=== PATIENT | male | born 1995 | race Caucasian/White ===

== ENCOUNTER → 2018-04-17 10:26 | Outpatient (POV) | payer OTHER, SELFPAY | PROVIDERS: Family Provider Internal Medicine Adolescent Medicine; Visit Provider Dermatology | DX: Z00.00 Encounter for general adult medical examination without abnormal findings (principal) ==

== ENCOUNTER → 2018-05-30 12:51 | Outpatient (CLI) | payer OTHER, SELFPAY ==
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
== END ==
PROVIDERS: PCP Internal Medicine Adolescent Medicine; Visit Provider Nurse Practitioner Family
DX: M54.6 Pain in thoracic spine (principal); M54.5 Low back pain; M25.561 Pain in right knee; M25.562 Pain in left knee; V89.2XXA Person injured in unspecified motor-vehicle accident, traffic, initial encounter
CPT/HCPCS: 72072; 72110; 73562

== ENCOUNTER 2020-05-08 08:01 | Inpatient (IN) | payer BC, SELFPAY ==
[2020-05-08] VITALS (12 sets, daily range): BP systolic 111–132; BP diastolic 64–80; PULSE 94–107; RESP 16–20; TEMP 36.6–36.8; O2SAT 94–98; BMI 27.1
--- NOTE | 2020-05-08 08:06 | ECG_ITS ---
APPROVED REPORT Exam: Resting ECG HR:86 bpm ECG Measurements Heart Rate 86 AXES AR 120 P 70 QRSd 102 QRS 18 QT 324 T 35 QTc 387 Conclusion Normal sinus rhythm ST elevation, probably due to early repolarization Borderline ECG Electronically signed by : Man Jensen, 05/18/2020 16:31:42
--- NOTE | 2020-05-08 08:10 | XR_ITS ---
PROCEDURE: XR CHEST PORTABLE CLINICAL HISTORY: cough COMPARISON: No exams were available for comparison FINDINGS: The cardiomediastinal silhouette and pulmonary vascularity are within normal limits. The lungs are clear without infiltrates, suspicious nodules, or pleural effusions. There is nodular density in the left hilar region which may be due to summation artifact from vascular overlap. Upright PA and lateral chest may confirm. A lymph node would be an additional consideration. IMPRESSION: No acute finding. Nodular density in the left hilar region Dictated by: Carlos Alberto Anand MD 05/08/2020 08:56 Carlos Alberto Anand MD in [place] 05/08/2020 08:56
[2020-05-08 08:29] LABS: Basophils % 0.2 % (0.1-2.0); Eosinophils # 0.1 K/mm3 (0.0-0.4); Eosinophils % 1.4 % (0.1-12.0); Hematocrit 50.4 % (42.0-52.0); Hemoglobin 16.4 g/dL (14.1-18.0); Lymphocytes # 1.1 K/mm3 (0.7-4.5); Lymphocytes % 13.9 % (10-50); Mean Corpuscular HGB Conc 32.7 g/dL (31.8-35.4); Mean Corpuscular Hemoglobin 31.5 pg (27.0-31.2); Mean Corpuscular Volume 96.5 fl (80-94); Mean Platelet Volume 8.2 fl (7.4-10.4); Monocytes # 0.8 K/mm3 (0.1-1.0); Monocytes % 9.8 % (1.7-9.3); Neutrophils % 74.8 % (37.0-80.0); Platelet Count 132 K/mm3 (142-424); Red Blood Count 5.22 M/mm3 (4.60-6.20); Red Cell Distribution Width 14.3 % (11.5-17.5)
[2020-05-08 08:31] LABS: Potassium 3.9 mmoL/L (3.5-5.1); Sodium 135 mmol/L (136-145)
[2020-05-08 08:33] LABS: Alanine Aminotransferase 44 U/L (12-78); Aspartate Amino Transferase 61 U/L (17-59); Blood Urea Nitrogen 14 mg/dl (9-20); Creatinine Clearance Estimated 184 mL/min (50-200); Estimated Glomerular Filt Rate 120 ml/min (>60); GFR (African American) 145 ML/MIN (>60)
[2020-05-08 08:34] LABS: Albumin Level 4.5 g/dl (3.5-5.0); Albumin/Globulin Ratio 1.6 (1.1-1.8); Alkaline Phosphatase 126 U/L (38-126); Bilirubin,Total 0.8 mg/dl (0.2-1.3); Calcium 9.2 mg/dl (8.4-10.2); Carbon Dioxide 27 mmol/L (22.0-30.0); Globulin 2.9 g/dL (1.3-3.2); Glucose 186 mg/dl (74-100); Lipase 75 U/L (23-300); Total Protein,Serum 7.4 g/dl (6.3-8.2)
[2020-05-08 08:43] LABS: NT Pro Brain Natriuretic Pep. 318 pg/mL (0-125)
[2020-05-08 08:48] LABS: Troponin I 5.96 ng/ml (0.00-0.034)
--- NOTE | 2020-05-08 08:51 | PC.NURSE ---
Joey called advised of troponin and abnormal ekg
[2020-05-08 08:54] LABS: Anion Gap 13.9 mEq/L (5-15); Chloride 98 mmol/L (98-107)
--- NOTE | 2020-05-08 08:55 | CA_ITS ---
APPROVED REPORT EXAM: Comprehensive 2D, Doppler, and color-flow Echocardiogram Hog Driver: Saray Crespo CRT Ht: 6 ft 0 in Wt: 200lbs BSA: 2.13 BP: 111/72 mmHg Indications: Chest Pain, Increased trop, ? pericarditis 2D Dimensions LVOT 1.90 cm (M/F) 1.5-2.5 M-Mode Dimensions RVDd 2.59 cm (0.9-2.6) LA Diam 2.91 cm (1.9-4.0) LVDd 6.06 cm (3.5-5.7) Ao Diam 3.30 cm (2.0-3.7) LVDs 5.00 cm (3.5-5.7) IVSd 0.88 cm (0.6-1.1) PWd 0.56 cm (0.6-1.1) EF (Teich) 35.80% FS 17.50% EDV (Teich) 184.10 mL ESV (Teich) 118.20 mL LV Diastology E Decel Time 150.00 (160-240 msec) E/A Ratio 1.14 MED E' 6.60 (< 7 cm/sec) E'/MED E' Ratio 11.29 (>14) LAT E' 9.70 (<10 cm/sec) E/LAT E' Ratio 7.68 (>14) Aortic Valve AO Peak GR. 3.80 mmHg Mitral Valve MV E Max Stas. 74.00 (40-130 cm/s) MV A Velocity 65.00 (40-130 cm/s) E/A Ratio 1.14 MV Decel. Time 150.00 (160-240 ms) MV PHT 44.00 ms Tricuspid Valve TR P. Velocity 62.00 cm/s Left Ventricle Left atrium is normal size, left ventricle is mildly enlarged, mildly reduced left ventricular systolic function, visually estimated ejection fraction approximately 45% with mild left ventricular global hypokinesis. Diastolic parameters are within normal range. Right Ventricle Right atrium and right ventricular normal size and contractility. Aortic Valve Aortic valve is grossly normal, there is no aortic stenosis or aortic insufficiency. Mitral Valve Mitral valve is grossly normal, there is mild mitral regurgitation Tricuspid Valve Tricuspid valve is grossly normal, there is mild tricuspid regurgitation, tricuspid regurgitation jet velocity is inadequate for calculation of the right ventricular systolic pressure. Pulmonic Valve Pulmonic valve is poorly visualized. Great Vessels Aortic root is normal size. Pericardium No significant pericardial effusion noted. Conclusion 1. Mildly dilated left ventricle, visually estimated ejection fraction 45% left ventricle is mildly globally hypokinetic. There is no regional wall motion abnormality. Diastolic parameters are normal. 2. Mild mitral and tricuspid regurgitation. 3. No significant pericardial effusion noted. Electronically signed by : Matheus Jaimes, 05/08/2020 10:10:05
--- NOTE | 2020-05-08 09:01 | PC.NURSE ---
[facility] at bedside
[2020-05-08 09:03] LABS: Activated Partial Thrombo Time 27.9 seconds (23.6-34.0); INR 1.01 (0.9-1.1); Prothrombin Time 11.2 seconds (9.4-11.8)
[2020-05-08 09:10] LABS: D-Dimer 0.61 ug/mL (0.15-8.0)
--- NOTE | 2020-05-08 09:14 | PC.NURSE ---
echo at bedside
--- NOTE | 2020-05-08 09:15 | [facility]H.EDCP ---
ED Disposition Clinical Impression: Chest pain Qualifiers: Chest pain type: unspecified Qualified Code(s): R07.9 - Chest pain, unspecified Acute pericarditis Qualifiers: Pericarditis type: infectious Infectious pericarditis etiology: viral Qualified Code(s): I30.1 - Infective pericarditis Disposition: Admitted As Inpatient Condition on Discharge: Serious Referrals: Nick Purcell MD [Primary Care Provider] - - Critical Care Critical Care Time: No Attestation: On 05/08/20, the high probability of a clinically significant, sudden or life threatening deterioration of the following system(s) required my full and direct attention, intervention and personal management. The time I documented below is in addition to time spent performing reported procedures but includes the following listed in this critical care notation. Medical Decision Making - Medical Records Medical records reviewed: Yes: I reviewed the patient's medical records. - Shay Inquiry Pt receiving controlled substance: No Vital Signs: 05/08/20 08:02 05/08/20 08:32 05/08/20 09:00 Temperature 98 F Temperature Source Oral Pulse Rate [Radial] 104 H 107 H 102 H Respiratory Rate 20 Blood Pressure [Right Arm] 130/70 127/78 111/64 Blood Pressure Mean [Right Arm] 90 94 79 Blood Pressure Position [Right Arm] Sitting Sitting Sitting 02 Sat by Pulse Oximetry 96 Oxygen Delivery Method Room Air - Lab Data Lab Results 05/08/20 08:15: WBC 8.0, RBC 5.22, Hgb 16.4, Hct 50.4, MCV 96.5 H, MCH 31.5 H, MCHC 32.7, RDW 14.3, Plt Count 132 L, MPV 8.2, Neut % (Auto) 74.8, Lymph % (Auto) 13.9, [place] % (Auto) 9.8 H, Eos % (Auto) 1.4, Baso % (Auto) 0.2, Neut # (Auto) 6.0, Lymph # (Auto) 1.1, [place] # (Auto) 0.8, Eos # (Auto) 0.1, Baso # (Auto) 0.0 05/08/20 08:15: Sodium 135 L, Potassium 3.9, Chloride 98, Carbon Dioxide 27, Anion Gap 13.9, BUN 14, Creatinine 0.80, Estimated Creat Clear 184, Estimated GFR 120, Est GFR ( Amer) 145, Glucose 186 H, Calcium 9.2, Total Bilirubin 0.8, AST 61 H, ALT 44, Alkaline Phosphatase 126, Troponin I 5.96 H, NT-Pro-B Natriuret Pep 318 H, Total Protein 7.4, Albumin 4.5, Globulin 2.9, Albumin/Globulin Ratio 1.6, Lipase 75 05/08/20 08:39: PT 11.2, INR 1.01, APTT 27.9 05/08/20 08:39: D-Dimer 0.61 Result diagrams: 05/08/20 08:15 05/08/20 08:15 Orders (Tests/Meds): ED MEDICATIONS Generic Name Dose Route Start Last Admin Trade Name Freq PRN Reason Stop Dose Admin Sodium Chloride 8 ml 05/08/20 08:14 05/08/20 08:20 Sodium Chloride 0.9% 10ml Vial IV 06/07/20 08:13 8 ml NEEDED PRN Administration dilute pepcid Discontinued Medications Generic Name Dose Route Start Last Admin Trade Name Freq PRN Reason Stop Dose Admin Aspirin 325 mg 05/08/20 08:10 05/08/20 08:21 Aspirin 325mg Tablet PO 05/08/20 08:11 Not Given ONCE ONE Aspirin 324 mg 05/08/20 08:21 05/08/20 08:21 Aspirin 81mg Chewable Tablet PO 05/08/20 08:22 324 mg ONCE ONE Administration Famotidine 20 mg 05/08/20 08:14 05/08/20 08:19 Famotidine 20mg/2ml Vial IV 05/08/20 08:15 20 mg ONCE ONE Administration ORDERS Category Date Time Status Covid-19 IgG/IgM ([facility]) Stat Lab 05/08/20 08:15 Received Troponin I Q3H Lab 05/08/20 11:15 Ordered Troponin I Q3H Lab 05/08/20 14:15 Ordered EKG Request [ECG Request by /Syeda] Stat Y 05/08/20 08:10 Ordered - Radiology Data #1 Image(s): Chest Image Reviewed: Yes I reviewed the patient's radiology results, Yes I reviewed the patient's radiology image Preliminary Findings: Normal/NAD - ECG Data Tracing #1 Normal ventricular rate 86 bpm. OH interval of 120 ms. Normal QTC. Normal sinus rhythm with diffuse ST elevation ECG initial impression date: 05/08/20 ECG initial impression time: 08:08 - Physician Consults Physician Consulted: Alvin Zavala Time: 09:19 Reason -: Cardiology Eval/Care - Reevaluation(s) Time: 09:18 Reevaluation
--- NOTE | 2020-05-08 09:20 | PC.NURSE ---
vascular here to do an echo
[2020-05-08 09:26] LABS: Coronavirus 19 IgG Antibody Positive (Negative); Coronavirus 19 IgM Antibody Negative (Negative)
--- NOTE | 2020-05-08 09:26 | HMH.CNCARD ---
History of Present Illness Consult date: 05/08/20 Requesting physician: Bruno Pratt Consult reason: chest pain Chief complaint: chest pain Additional Medical History:: 1. Tobacco use, 1.5 packs/day, off and on for many years 2. URI with myocarditis, 05/08/2020 History of present illness: 24-year-old male presents to the emergency department with a 2-day history of chest discomfort. Patient states that he woke yesterday and started having some substernal chest discomfort. It is dull in nature. Anthony like it was radiating to his back. He did take some ibuprofen yesterday which seemed to help with the symptoms. However he awoke again this morning's he was still having consistent pain. Patient states that he has never had this before. Denies any past medical history. Does not take any medications. He does endorse some URI type symptoms over the last few days. He has had some runny nose, sore throat as well as nonproductive cough. Denies any fevers or chills. No sick contacts. No recent travel. No palpitations. No hemoptysis. Denies any abdominal pain or vomiting. No headache, no change in vision, no focal weakness. The above per NARCISA Garcia MD Patient does smoke about a pack and half per day for the last 6 months. He is on no medications. He denies any contact with anyone known to have COVID-19. He relates chills this a.m. when he awoke. Cardiology consulted for abnormal EKG and elevated troponin of 5.9. EKG shows sinus rhythm with ST elevation diffusely. [facility] History *Have you ever received a pneumonia vaccine?: No *Have you received a flu vaccine this season?: No - *Social History Alcohol Intake: never *Occupational Status:: employed *Travel in the last 8 weeks: Inside the [place] Family Hx:: No significant family history Meds Home Medications Medication Instructions Recorded Confirmed Type No Known Home Medications 05/24/18 05/08/20 History Allergies Allergy/AdvReac Type Severity Reaction Status Date / Time No Known Allergies Allergy Verified 05/24/18 08:57 Exam Vital signs and Labs for Last 24 Hours: Temp Pulse Resp BP Pulse Ox 98 F 102 H 20 111/64 96 05/08/20 08:02 05/08/20 09:00 05/08/20 08:02 05/08/20 09:00 05/08/20 08:02 Laboratory Results - last 24 hr 05/08/20 08:15: WBC 8.0, RBC 5.22, Hgb 16.4, Hct 50.4, MCV 96.5 H, MCH 31.5 H, MCHC 32.7, RDW 14.3, Plt Count 132 L, MPV 8.2, Neut % (Auto) 74.8, Lymph % (Auto) 13.9, [place] % (Auto) 9.8 H, Eos % (Auto) 1.4, Baso % (Auto) 0.2, Neut # (Auto) 6.0, Lymph # (Auto) 1.1, [place] # (Auto) 0.8, Eos # (Auto) 0.1, Baso # (Auto) 0.0 05/08/20 08:15: Sodium 135 L, Potassium 3.9, Chloride 98, Carbon Dioxide 27, Anion Gap 13.9, BUN 14, Creatinine 0.80, Estimated Creat Clear 184, Estimated GFR 120, Est GFR ( Amer) 145, Glucose 186 H, Calcium 9.2, Total Bilirubin 0.8, AST 61 H, ALT 44, Alkaline Phosphatase 126, Troponin I 5.96 H, NT-Pro-B Natriuret Pep 318 H, Total Protein 7.4, Albumin 4.5, Globulin 2.9, Albumin/Globulin Ratio 1.6, Lipase 75 05/08/20 08:39: PT 11.2, INR 1.01, APTT 27.9 05/08/20 08:39: D-Dimer 0.61 I & O for Last 24 hours: Intake & Output 05/05/20 05/06/20 05/07/20 05/08/20 11:59 11:59 11:59 11:59 Weight 200 lb - Constitutional no acute distress - *Routine Neck Exam Present: supple. Absent: lymphadenopathy - *Routine Respiratory Exam Present: CTA bilaterally - *Routine Cardiovascular Exam Present: RRR - *Routine Abdominal Exam Present: soft, normoactive bowel sounds. Absent: tenderness - *Routine Extremities Exam Absent: cyanosis, clubbing, edema - *Routine Neurological Exam Present: alert, oriented X3 Review of Systems - Review of Systems Review of systems:: pertinent systems reviewed and negative unless documented below - *Cardiovascular Reports chest pain - *Neurologic Denies headache(s) Assessment and Plan (1) Myocarditis Status: Acute Category: Medical Co
--- NOTE | 2020-05-08 10:20 | P.CONPHA_ITS ---
[facility] Pharmacy VTE Monitoring - Patient Demographics Admission date: 05/08/20 Report Date: 05/08/20 Time: 10:21 Allergies/Adverse Reactions: Patient Allergies No Known Allergies Allergy (Verified 05/24/18 08:57) Height: 1.83 m Weight: 90.718 kg Patient Problems: Current Active Problems Chest pain (Acute) Acute pericarditis (Acute) Myocarditis (Acute) Tobacco use (Acute) URI (upper respiratory infection) (Acute) - VTE Risk Labs: VTE Related Lab Results Hgb 16.4 g/dL (14.1-18.0) 05/08/20 08:15 Hct 50.4 % (42.0-52.0) 05/08/20 08:15 Plt Count 132 K/mm3 (142-424) L 05/08/20 08:15 PT 11.2 seconds (9.4-11.8) 05/08/20 08:39 INR 1.01 (0.9-1.1) 05/08/20 08:39 APTT 27.9 seconds (23.6-34.0) 05/08/20 08:39 BUN 14 mg/dl (9-20) 05/08/20 08:15 Creatinine 0.80 mg/dl (0.66-1.25) 05/08/20 08:15 Estimated Creat Clear 184 mL/min (50-200) 05/08/20 08:15 Clinical Trial Participant: No - Prophylaxis VTE Prophylaxis Ordered?: Yes Types of VTE Prophylaxis: TEDS Knee High
--- NOTE | 2020-05-08 10:23 | PC.NURSE ---
report given to yoana avila
[2020-05-08 12:20] LABS: Adenovirus,PCR Not Detected (NotDetected); Bordetella Pertussis Not Detected (NotDetected); Chlamydophila Pneumoniae, PCR Not Detected (NotDetected); Coronavirus 19, PCR Not Detected (NotDetected); Coronavirus 229E Not Detected (NotDetected); Coronavirus NL63 Not Detected (NotDetected); Coronavirus OC43 Not Detected (NotDetected); Coronovirus HKU1,PCR Not Detected (NotDetected); Human Metapneumovirus Not Detected (NotDetected); Influenza A, PCR Not Detected (NotDetected); Influenza AH1, 2009 Not Detected (NotDetected); Influenza AH1, PCR Not Detected (NotDetected); Influenza AH3,PCR Not Detected (NotDetected); Influenza B, PCR Not Detected (NotDetected); Mycoplasma Pneumoniae, PCR Not Detected (NotDetected); Parainfluenza 1, PCR Not Detected (NotDetected); Parainfluenza 2, PCR Not Detected (NotDetected); Parainfluenza 3, PCR Not Detected (NotDetected); Parainfluenza 4, PCR Not Detected (NotDetected); Respiratory Syncytial Virus Not Detected (NotDetected); Rhinovirus/Enterovirus Not Detected (NotDetected)
--- NOTE | 2020-05-08 13:21 | HMH.HP ---
*Admission Date: 05/08/20 *Chief complaint: chest pain *History of present illness: 24-year-old male presents to the emergency department with worsening chest pressure/discomfort/referred pain to his arms over the past 2 to 3 days. He states he woke up this morning feeling like he had a balloon in his chest . Given concern so he called his mom who brought him to the ER. States the pain has been worsening over the past week with predominantly fatigue until onset of pain in his back arms neck and chest that is waxed and waned over the past 2 to 3 days. Yesterday took ibuprofen with some benefit. Was able to do his work. This morning scared him however. On assessment in the ER, he was noted to have significant elevation in troponin, diffuse ST elevation on EKG, and positive COVID-19 IgG antibody. Patient states that he has never had this before. Denies any past medical history. Does not take any medications. He does endorse cough, runny nose, and URI symptoms (mild in nature) that began 4 weeks ago and lasted about 2 weeks. Did not think much of it and has had no prior testing for COVID-19. Cough was minimally productive for white sputum. Over the past week however he denies any fevers or chills. No known sick contacts, no recent travel, no palpitations. Patient does smoke about a pack and half per day for the last 6 months. Cardiology consulted for abnormal EKG and elevated troponin of 5.9. EKG shows sinus rhythm with ST elevation diffusely. Admitted to medicine for further management of suspected pericarditis/myocarditis [facility] History I have reviewed the patient's past medical history: Yes Medical History: Denies:: Cancer, Diabetes Mellitus Type 1, Diabetes Mellitus Type 2, MRSA *Have you ever received a pneumonia vaccine?: No *Have you received a flu vaccine this season?: No Other Surgeries: Yes: No Previous Surgery Amputation: No Fractures: No - *Social History Last grade of school completed: High school graduate Smoking Status: Current every day smoker Tobacco Type: cigarettes, smokeless tobacco # Packs/Day (cigarettes): 1 Alcohol Intake: current Alcohol Intake Frequency:: holidays/special occasions only *Occupational Status:: employed Housing: house Household Members: none *Travel in the last 8 weeks: Inside the [facility] Family Hx:: No significant family history Review of Systems - Review of Systems Review of systems:: pertinent systems reviewed and negative unless documented below (14 point review of systems performed, pertinent positives and negatives as per HPI) - *Neurologic Denies headache(s) Meds Home Medications Medication Instructions Recorded Confirmed Type No Known Home Medications 05/24/18 05/08/20 History Allergies Allergy/AdvReac Type Severity Reaction Status Date / Time No Known Allergies Allergy Verified 05/24/18 08:57 Exam Vital signs and Labs for Last 24 Hours: Temp Pulse Resp BP Pulse Ox 98.2 F 98 H 20 115/80 98 05/08/20 11:27 05/08/20 11:27 05/08/20 11:27 05/08/20 11:27 05/08/20 11:27 Laboratory Results - last 24 hr 05/08/20 08:15: WBC 8.0, RBC 5.22, Hgb 16.4, Hct 50.4, MCV 96.5 H, MCH 31.5 H, MCHC 32.7, RDW 14.3, Plt Count 132 L, MPV 8.2, Neut % (Auto) 74.8, Lymph % (Auto) 13.9, [place] % (Auto) 9.8 H, Eos % (Auto) 1.4, Baso % (Auto) 0.2, Neut # (Auto) 6.0, Lymph # (Auto) 1.1, [place] # (Auto) 0.8, Eos # (Auto) 0.1, Baso # (Auto) 0.0 05/08/20 08:15: Sodium 135 L, Potassium 3.9, Chloride 98, Carbon Dioxide 27, Anion Gap 13.9, BUN 14, Creatinine 0.80, Estimated Creat Clear 184, Estimated GFR 120, Est GFR ( Amer) 145, Glucose 186 H, Calcium 9.2, Total Bilirubin 0.8, AST 61 H, ALT 44, Alkaline Phosphatase 126, Troponin I 5.96 H, NT-Pro-B Natriuret Pep 318 H, Total Protein 7.4, Albumin 4.5, Globulin 2.9, Albumin/Globulin Ratio 1.6, Lipase 75 05/08/20 08:15: SARS-CoV-2 IgG Ab (Rapid) Positive A, SARS-CoV-2 IgM Ab (Rapid) Negative 05/08/20 08:39: PT 11.2, INR 1
--- NOTE | 2020-05-08 18:15 | PC.NURSE ---
Pt was a new admit this shift from the ER with pericarditis. Pt has been pleasant and cooperative. A&O X4. No complaints of pain or SOA. Lungs CTA. No edema noted. Skin is C/D/I. Pt is on room air with sats. >93%. Telemetry reveals NSR. Pt ambulates independently throughout the room and to/from the bathroom. Pt voids clear, yellow urine without issue. No BM this shift. 20 G peripheral IV in the LT forearm is patent and infusing NS @ 50 ML/HR. VSS. Call light within reach. Will continue to monitor.
--- NOTE | 2020-05-08 23:52 | PC.NURSE ---
He is A&Ox3. He denies any pain including chest pain. He is sitting up in bed watching television. He reports is IV fluids. Reports he is drinking plenty of fluids. Continues on RA. He reports his last BM was on 05/07/20.
[2020-05-09] VITALS: BP 130/71; PULSE 89; PULSE 90; RESP 18; TEMP 36.6; O2SAT 96
[2020-05-09 04:00] VITALS: BP 126/70; PULSE 80; PULSE 92; RESP 16; TEMP 36.4; O2SAT 96
[2020-05-09 05:26] VITALS: BMI 27.1
--- NOTE | 2020-05-09 06:33 | PC.NURSE ---
12-Lead EKG completed without complication. Pt tolerated well
--- NOTE | 2020-05-09 06:34 | PC.NURSE ---
No acute changes since previous assessment.
--- NOTE | 2020-05-09 07:00 | ECG_ITS ---
APPROVED REPORT Exam: Resting ECG HR:73 bpm ECG Measurements Heart Rate 73 AXES OK 120 P 61 QRSd 98 QRS -6 QT 372 T -2 QTc 409 Conclusion Normal sinus rhythm ST elevation, consider lateral injury or acute infarct ACUTE SD Abnormal ECG Electronically signed by : Man Jensen, 05/15/2020 11:40:01
[2020-05-09 07:06] LABS: Basophils % 0.1 % (0.1-2.0); Eosinophils % 0.2 % (0.1-12.0); Hematocrit 49.9 % (42.0-52.0); Hemoglobin 16.9 g/dL (14.1-18.0); Lymphocytes # 0.9 K/mm3 (0.7-4.5); Mean Corpuscular HGB Conc 33.9 g/dL (31.8-35.4); Mean Corpuscular Hemoglobin 32.1 pg (27.0-31.2); Mean Corpuscular Volume 94.7 fl (80-94); Mean Platelet Volume 8.2 fl (7.4-10.4); Monocytes # 0.2 K/mm3 (0.1-1.0); Neutrophils # 6.7 K/mm3 (1.8-7.8); Neutrophils % 84.7 % (37.0-80.0); Platelet Count 165 K/mm3 (142-424); Red Blood Count 5.26 M/mm3 (4.60-6.20); Red Cell Distribution Width 13.9 % (11.5-17.5); White Blood Count 7.9 K/mm3 (4.8-10.8)
[2020-05-09 07:13] LABS: Chloride 99 mmol/L (98-107); Sodium 137 mmol/L (136-145)
[2020-05-09 07:14] LABS: Potassium 4.6 mmoL/L (3.5-5.1)
[2020-05-09 07:16] LABS: Blood Urea Nitrogen 14 mg/dl (9-20); Creatinine Clearance Estimated 184 mL/min (50-200); Estimated Glomerular Filt Rate 120 ml/min (>60); GFR (African American) 145 ML/MIN (>60)
[2020-05-09 07:17] LABS: Anion Gap 14.6 mEq/L (5-15); Calcium 9.5 mg/dl (8.4-10.2); Carbon Dioxide 28 mmol/L (22.0-30.0); Glucose 158 mg/dl (74-100)
[2020-05-09 07:32] LABS: Troponin I 4.29 ng/ml (0.00-0.034)
[2020-05-09 08:00] VITALS: BP 143/85; PULSE 87; PULSE 90; RESP 20; TEMP 36.4; O2SAT 96
--- NOTE | 2020-05-09 08:14 | HMH.DCSUM ---
General - General Admission date:: 05/08/20 Discharge date: 05/09/20 HPI HPI: 24-year-old male presents to the emergency department with worsening chest pressure/discomfort/referred pain to his arms over the past 2 to 3 days. He states he woke up this morning feeling like he had a balloon in his chest . Given concern so he called his mom who brought him to the ER. States the pain has been worsening over the past week with predominantly fatigue until onset of pain in his back arms neck and chest that is waxed and waned over the past 2 to 3 days. Yesterday took ibuprofen with some benefit. Was able to do his work. This morning scared him however. On assessment in the ER, he was noted to have significant elevation in troponin, diffuse ST elevation on EKG, and positive COVID-19 IgG antibody. Patient states that he has never had this before. Denies any past medical history. Does not take any medications. He does endorse cough, runny nose, and URI symptoms (mild in nature) that began 4 weeks ago and lasted about 2 weeks. Did not think much of it and has had no prior testing for COVID-19. Cough was minimally productive for white sputum. Over the past week however he denies any fevers or chills. No known sick contacts, no recent travel, no palpitations. Patient does smoke about a pack and half per day for the last 6 months. Cardiology consulted for abnormal EKG and elevated troponin of 5.9. EKG shows sinus rhythm with ST elevation diffusely. Admitted to medicine for further management of suspected pericarditis/myocarditis Hospital Course Hospital Course: Patient was admitted, started on anticoagulation, IV Solu-Medrol, ibuprofen and colchicine. Echocardiogram showed diminished EF at 45%, global hypokinesis consistent with the diagnosis of viral myocarditis given clinical presentation and EKG changes. Patient improved over the next 24 hours and troponins are trending down nicely. This morning patient's exam is normalized. He will be discharged home with p.o. medications as noted in the reconciliation form. Instructed on low-salt diet, he will follow-up with us in 2 days. No lifting greater than 10 pounds or strenuous aerobic activities. Objective Vital signs: Temp Pulse Resp BP Pulse Ox 97.6 F 87 20 143/85 H 96 05/09/20 08:00 05/09/20 08:00 05/09/20 08:00 05/09/20 08:00 05/09/20 08:00 no acute distress - *Routine HEENT Exam Head: Present: normocephalic Eye: Present: EOMI, PERRL ENT: Present: mucous membranes moist - *Routine Neck Exam Present: supple - *Routine Respiratory Exam Present: CTA bilaterally - *Routine Cardiovascular Exam Present: RRR - *Routine Abdominal Exam Present: soft, normoactive bowel sounds. Absent: tenderness - *Routine Extremities Exam Absent: cyanosis, clubbing, edema - *Routine Skin Exam Present: warm. Absent: rash - Detailed Eye Exam Eyelids: Bilateral normal inspection Results Labs on day of discharge: Labs from last 24 hours 05/09/20 05/09/20 05/08/20 06:57 06:57 15:55 WBC 7.9 RBC 5.26 Hgb 16.9 Hct 49.9 MCV 94.7 H MCH 32.1 H MCHC 33.9 RDW 13.9 Plt Count 165 MPV 8.2 Neut % (Auto) 84.7 H Lymph % (Auto) 12.0 [place] % (Auto) 3.0 Eos % (Auto) 0.2 Baso % (Auto) 0.1 Neut # (Auto) 6.7 Lymph # (Auto) 0.9 [place] # (Auto) 0.2 Eos # (Auto) 0.0 Baso # (Auto) 0.0 PT INR APTT D-Dimer Sodium 137 Potassium 4.6 Chloride 99 Carbon Dioxide 28 Anion Gap 14.6 BUN 14 Creatinine 0.80 Estimated Creat Clear 184 Estimated GFR 120 Est GFR ( Amer) 145 Glucose 158 H Calcium 9.5 Total Bilirubin AST ALT Alkaline Phosphatase Troponin I 4.29 H 10.70 H NT-Pro-B Natriuret Pep Total Protein Albumin Globulin Albumin/Globulin Ratio Lipase Chlamy pneumoniae PCR Adenovirus (PCR) B. pertussis D
== END 2020-05-09 09:48 | disposition home or self-care (01) | DRG 316 ==
LOC: ER 09:20 → 2ND 09:37
PROVIDERS: Physician Assistant; Admitting Provider Internal Medicine Adolescent Medicine; Emergency Provider Emergency Medicine; PCP Internal Medicine Adolescent Medicine; Visit Provider Internal Medicine Adolescent Medicine
DX: I51.4 Myocarditis, unspecified (principal); Z86.19 Personal history of other infectious and parasitic diseases; Z72.0 Tobacco use; J06.9 Acute upper respiratory infection, unspecified
CPT/HCPCS: 36415; 71045; 80048; 80053; 83690; 83880; 84484; 85025; 85378; 85610; 85730; 86328; 87581; 87633; 87798; 93005; 93306; 96365; 99284

== ENCOUNTER → 2020-06-05 09:14 | Outpatient (CLI) | payer BC, SELFPAY | PROVIDERS: PCP Internal Medicine Adolescent Medicine; Visit Provider Urology | DX: I51.4 Myocarditis, unspecified (principal); J06.9 Acute upper respiratory infection, unspecified; Z01.84 Encounter for antibody response examination; Z72.0 Tobacco use | CPT/HCPCS: 93306 ==

== ENCOUNTER → 2021-05-18 15:28 | Outpatient (POV) | payer BC, SELFPAY | PROVIDERS: Visit Provider Dermatology | DX: Z00.00 Encounter for general adult medical examination without abnormal findings (principal) ==

== ENCOUNTER 2022-05-14 14:19 | Emergency (ER) | payer OTHER, SELFPAY ==
[2022-05-14 14:20] VITALS: BP 128/67; PULSE 97; RESP 16; TEMP 37.2; O2SAT 99; BMI 29.1
--- NOTE | 2022-05-14 14:36 | HMH.EDNVD ---
Discharge Plan Disposition Patient Disposition: Home, Self-Care Prescriptions Prescriptions: New ondansetron HCl 4 mg Tablet 4 mg PO Q8H PRN (Reason: Nausea) Qty: 14 0RF Referrals Follow up/Referrals: Nick Purcell MD [Primary Care Provider] - See instructions Clinical Impressions Clinical Impression: Abdominal pain Instructions Patient Instructions: DI for Nausea -- Adult Discharge ED Provider: Mitchell Jiménez Nausea/Vomiting/Diarrhea HPI General Chief complaint: Nausea/Vomiting/Diarrhea Stated complaint: vomiting, abdominal pain Time Seen by Provider: 05/14/22 14:36 Mode of Arrival: Ambulatory Source of Information: Patient, Spouse and Medical Record Limitations: No Limitations Description of Symptoms (Recalled from ER Triage Doc. by RN): Pt reports vomiting that began approx 10 am this morning. Pt also reports constant LUQ abd pain, pt reports pain began as a cramping right after vomiting but is now constant. Pt denies fever, states no change in BM habits (reports normally has diarrhea). History of Present Illness HPI Narrative: onset this am with lt sided abd pain with nausea - has food intol - no fever - no known chronic illness complaint: nausea, vomiting and abdominal pain Onset (ago): hour(s) Associated Abdominal Pain: Yes Location of pain: LUQ and LLQ Radiation: flank Severity: moderate Quality: aching Associated symptoms: denies other symptoms Related Data Previous Rx's Medication Instructions Recorded ondansetron HCl 4 mg tablet 4 mg PO Q8H PRN Nausea #14 tabs 05/14/22 Allergies Allergy/AdvReac Type Severity Reaction Status Date / Time No Known Allergies Allergy Verified 06/10/20 08:41 PFSH PFS Social History (Updated 05/14/22 @ 14:33 by Wendy Saba RN) Smoking Status: Never smoker second hand exposure: No alcohol intake: current substance use type: denies use current occupational status: employed Travel in the last 8 weeks: Inside the [place] household members: none housing: house current occupation: Electrical work current occupational exposures/hazards: Yes caffeine: Yes ROS Obtained: Yes All systems reviewed & no additional complaints except as documented Constitutional Constitutional: Denies fever(s) Eyes Eyes: Denies photophobia ENT Ears, Nose, Mouth, and Throat: Denies vertigo Gastrointestinal Gastrointestingal: Reports as per HPI, cramping, nausea and vomiting Neurologic Neurologic: Denies vertigo Physical Exam General General appearance: alert Head Head exam: normocephalic Eye Eye exam: Present PERRL and EOMI; Absent jaundice ENT ENT exam: Present mucous membranes moist Neck Neck exam: Present trachea midline Respiratory Respiratory exam: Present normal lung sounds bilaterally; Absent respiratory distress Cardiovascular Cardiovascular exam: Present regular rate; Absent systolic murmur Abdominal Exam Abdominal exam: Present soft and tenderness; Absent guarding, rebound or rigidity Abdominal tenderness: Present LUQ, LLQ and moderate Extremities Exam Extremities exam: Present full ROM Back Exam Back exam: Absent CVA tenderness (L) Neurological Exam Neurological exam: Present alert, oriented X3 and CN II-XII intact Psychiatric Psychiatric exam: Present normal affect Skin Skin exam: Absent rash Medical Decision Making Medical Records Medical records reviewed: Yes I reviewed the patient's medical records. Shay Inquiry Pt receiving controlled substance: No Vital Signs: 05/14/22 14:20 05/14/22 15:00 05/14/22 15:31 Temperature 98.9 F Temperature Source Oral Pulse Rate 92 H 91 H Pulse Rate [Right Radial] 97 H Respiratory Rate 16 20 22 Blood Pressure 126/70 115/68 Blood Pressure [Right Arm] 128/67 Blood Pressure Mean 81 83 Blood Pressure Mean [Right Arm] 87 Blood Pressure Source [Right Arm] Automatic Cuff Blood Pressure Position [Right Arm] Sitting 02 Sat by Pulse Oximetry 99
--- NOTE | 2022-05-14 14:41 | CT_ITS ---
PROCEDURE INFORMATION: Exam: CT Abdomen And Pelvis With Contrast Exam date and time: 05/14/2022 3:35 PM Age: 26 years old Clinical indication: Abdominal pain; Generalized; Additional info: Abd pain TECHNIQUE: Imaging protocol: Computed tomography of the abdomen and pelvis with contrast. Radiation optimization: All CT scans at this facility use at least one of these dose optimization techniques: automated exposure control; mA and/or kV adjustment per patient size (includes targeted exams where dose is matched to clinical indication); or iterative reconstruction. Contrast material: ISOVUE; Contrast volume: 75 ml; Contrast route: IV; COMPARISON: [facility] CT THORACIC SPINE W/O CONTRAST 05/09/2017 7:48 AM FINDINGS: Liver: Normal. No mass. Gallbladder and bile ducts: Normal. No calcified stones. No ductal dilation. Pancreas: Normal. No ductal dilation. Spleen: Normal. No splenomegaly. Adrenal glands: Normal. No mass. Kidneys and ureters: Normal. No hydronephrosis. Stomach and bowel: No diverticulitis. No bowel obstruction or evidence of appendicitis. Appendix: Normal appendix. Intraperitoneal space: Unremarkable. No free air. No significant fluid collection. Vasculature: Unremarkable. No abdominal aortic aneurysm. Lymph nodes: Unremarkable. No enlarged lymph nodes. Urinary bladder: Unremarkable as visualized. Reproductive: Unremarkable as visualized. Bones/joints: Unremarkable. No acute fracture. Soft tissues: Unremarkable. Other findings: No other acute pathology seen. As above. IMPRESSION: 1. No diverticulitis. No bowel obstruction or evidence of appendicitis. 2. No other acute pathology seen. As above.
[2022-05-14 14:51] LABS: Microscopic, Urine URINE MICROSCOPIC (MICROSCOPIC)
--- NOTE | 2022-05-14 14:55 | PC.NURSE ---
rad notified of CT order
[2022-05-14 14:56] LABS: Basophils # 0.1 K/mm3 (0-0.2); Basophils % 0.6 % (0.1-2.0); Eosinophils # 0.2 K/mm3 (0.0-0.4); Eosinophils % 1.7 % (0.1-12.0); Hematocrit 50.3 % (42.0-52.0); Hemoglobin 16.6 g/dL (14.1-18.0); Lymphocytes # 0.9 K/mm3 (0.7-4.5); Lymphocytes % 7.1 % (10-50); Mean Corpuscular HGB Conc 32.9 g/dL (31.8-35.4); Mean Corpuscular Hemoglobin 30.7 pg (27.0-31.2); Mean Corpuscular Volume 93.1 fl (80-94); Mean Platelet Volume 8.3 fl (7.4-10.4); Monocytes # 0.5 K/mm3 (0.1-1.0); Monocytes % 3.9 % (1.7-9.3); Neutrophils # 11.4 K/mm3 (1.8-7.8); Neutrophils % 86.6 % (37.0-80.0); Platelet Count 195 K/mm3 (142-424); Red Cell Distribution Width 13.7 % (11.5-17.5); White Blood Count 13.1 K/mm3 (4.8-10.8)
[2022-05-14 14:56] LABS: Appearance,Urine CLEAR (Clear); Bilirubin,Urine Negative (Negative); Blood, Urine Negative (Negative); Color,Urine YELLOW (Yellow); Glucose,Urine (UA) Negative (Negative); Ketones,Urine Negative (Negative); Leukocyte Esterase,Urine Negative (Negative); Nitrate,Urine Negative (Negative); Protein,Urine Negative (Negative); Urobilinogen,Urine 0.2 EU/dl (0.2)
--- NOTE | 2022-05-14 14:57 | PC.NURSE ---
updated pt on POC at this time, pt states no needs at this time
[2022-05-14 15:00] VITALS: BP 126/70; PULSE 92; RESP 20; O2SAT 96
[2022-05-14 15:00] LABS: Chloride 97 mmol/L (98-107); Potassium 4.4 mmoL/L (3.5-5.1); Sodium 139 mmol/L (136-145)
[2022-05-14 15:02] LABS: Amylase 68 U/L (30-110)
[2022-05-14 15:03] LABS: Alanine Aminotransferase 33 U/L (12-78); Alkaline Phosphatase 122 U/L (38-126); Anion Gap 14.4 mEq/L (5-15); Aspartate Amino Transferase 35 U/L (17-59); Bilirubin,Total 0.6 mg/dl (0.2-1.3); Blood Urea Nitrogen 17 mg/dl (9-20); Calcium 9.3 mg/dl (8.4-10.2); Carbon Dioxide 32 mmol/L (22.0-30.0); Creatinine Clearance Estimated 195 mL/min (50-200); Estimated Glomerular Filt Rate 118 ml/min (>60); GFR (African American) 143 ML/MIN (>60); Glucose 94 mg/dl (74-100); Lipase 52 U/L (23-300); MANUAL DIFFERENTIAL MANUAL DIFFERENTIAL (MANUAL DIFF); Total Protein,Serum 7.9 g/dl (6.3-8.2)
[2022-05-14 15:08] LABS: C-Reactive Protein 5.7 mg/L (0-4)
[2022-05-14 15:17] LABS: Albumin Level 4.7 g/dl (3.5-5.0); Albumin/Globulin Ratio 1.5 (1.1-1.8); Globulin 3.2 g/dL (1.3-3.2)
[2022-05-14 15:31] VITALS: BP 115/68; PULSE 91; RESP 22; O2SAT 98
[2022-05-14 15:32] LABS: Lymphocytes % 12 % (10-50); Monocytes % 1 % (2-9); Neutrophils % 87 % (42-76); Platelet Estimate Normal; RBC Morphology Normal; Total Cells Counted 100
[2022-05-14 15:33] LABS: Erythrocyte Sedimentation Rate 2 mm/hr (0-15)
--- NOTE | 2022-05-14 15:36 | PC.NURSE ---
pt to CT
[2022-05-14 16:00] VITALS: BP 126/69; PULSE 91; RESP 20; O2SAT 97
[2022-05-14 16:31] VITALS: BP 127/62; PULSE 91; RESP 20; O2SAT 97
--- NOTE | 2022-05-14 16:41 | PC.NURSE ---
Dr Jiménez at bedside
[2022-05-14 17:05] VITALS: BP 125/69; PULSE 95; RESP 18; TEMP 37.2; O2SAT 98
== END 2022-05-14 17:05 | disposition home or self-care (01) ==
PROVIDERS: Emergency Provider Emergency Medicine; PCP Internal Medicine Adolescent Medicine
DX: R10.32 Left lower quadrant pain (principal); R11.2 Nausea with vomiting, unspecified; R19.7 Diarrhea, unspecified; Z79.899 Other long term (current) drug therapy
CPT/HCPCS: 74177; 80053; 81001; 82150; 83690; 85007; 85025; 85651; 86140; 96374; 96375; 99285; J2405; Q9967